=== PATIENT | female | born 1995 | race Two or more races ===

== ENCOUNTER 2016-10-06 13:38 | Emergency (ER) | payer OTHER ==
[~2016-10-06] VITALS: Ht 167.6 cm; Wt 80.5 kg
[~2016-10-06 13:38] MED LIST: ACYCLOVIR200 MG PO; BACTRIM,SEPT1 TABLET PO; Cortaid,Hytone 1% Cr TP; FE 90 PLUS TAB1 EACH PO; FLONASE16 G1 BOTH NARES; Feosol PO; KEFLEX500 MG PO; LEVAQUIN250 MG PO; MUCUS ER600 MG PO; Motrin PO; NAPROSYN500 MG PO; NORCO 5/3251 TABLET PO; PERCOCET 5/31 TABLET PO; Percocet 5/325,Endoc PO; ROBITUSSIN NIG118 ML PO; TESSALON PERLE100 MG PO; TYLENOL WITH C1 EACH PO; ZOFRAN ODT4 MG PO; ZOFRAN4 MG PO; Zovirax PO
[2016-10-06 14:58] LABS: HEMATOCRIT 38.8 % (36.0-46.0); MCH 29.5 PG (29.0-34.0); MCV 89.4 FL (83-99); PLATELET COUNT 182 K/uL (156-360); RBC DIS.WIDTH-CV 13.5 % (11.8-14.6); RBC DIS.WIDTH-SD 43.4 % (39-53); RED BLOOD COUNT 4.34 M/uL (3.80-5.20); WHITE BLOOD COUNT 5.8 K/uL (4.1-10.2)
[2016-10-06 15:10] LABS: CHLORIDE 108 mEq/L (99-109); POTASSIUM 3.7 mEq/L (3.7-5.4); SODIUM 139 mEq/L (136-147)
[2016-10-06 15:12] LABS: GLUCOSE 94 mg/dL (70-99)
[2016-10-06 15:14] LABS: ANION GAP 9 MEQ/L (2-14); TOTAL BILIRUBIN 0.5 mg/dL (0.0-1.0)
[2016-10-06 15:16] LABS: ALKALINE PHOSPHATASE 83 IU/L (3-129); GFR ESTIMATE (CALCULATED) > 59 mL/min/
[2016-10-06 15:17] LABS: UREA NITROGEN (BUN) 15 mg/dL (9-23)
[2016-10-06 15:27] LABS: QUANTITATIVE HCG < 4.0 MIU/ML
[2016-10-06 15:55] LABS: ADD MIUA? YES; BILIRUBIN NEGATIVE; BLOOD NEGATIVE; COLOR YELLOW ((YELLOW)); GLUCOSE (STRIP) NEGATIVE; KETONES NEGATIVE; LEUKOCYTES SMALL; NITRITE NEGATIVE; PROTEIN (STRIP) NEGATIVE; SPECIFIC GRAVITY 1.025 (1.000-1.030)
[2016-10-06 16:08] LABS: BACTERIA RARE /HPF; EPITHELIAL CELLS 3+ /HPF; MUCUS 2+ /LPF; RED BLOOD CELLS 0-5 /HPF (0-5); UCUL ADDED? NO; WHITE BLOOD CELLS 0-5 /HPF (0-5)
[2016-10-06 16:34] LABS: LIPASE 14 U/L (1.0-51.0)
[2016-10-06] MEDS ORDERED: BENTYL20 MG PO (17:46)
[2016-10-06] MEDS ORDERED: ZANTAC300 MG PO (17:46)
[2016-10-06] MEDS ORDERED: ZOFRAN ODT4 MG PO (17:46)
[2016-10-06 18:00] VITALS: BP 119/77
== END 2016-10-06 18:00 | disposition home or self-care (01) ==
LOC: EME 13:38
DX: R11.2 Nausea with vomiting, unspecified (principal); R10.30 Lower abdominal pain, unspecified; F17.200 Nicotine dependence, unspecified, uncomplicated
CPT/HCPCS: 80053; 81003; 83690; 84702; 85027; 99281; 99284